=== PATIENT | male | born 1930 | race Caucasian/White ===

== ENCOUNTER → 2017-12-23 | Outpatient (CLI) | payer OTHER, MEDICARE ==
[~2017-12-23] MED LIST: HYDHCL25 PO; ONDA4ODT
[2017-12-23 13:19] LABS: Bilirubin, Urine Neg (Neg); Blood, Urine 1+ (Neg); Glucose Qualitative, Urine Neg (Neg); Ketones, Urine Neg (Neg); Leukocyte Esterase, Urine Neg (Neg); Nitrite, Urine Neg (Neg); Protein, Urine 1+ (Neg); Specific Gravity, Urine 1.005 (1.003-1.022); Urobilinogen, Urine NORM (Normal)
[2017-12-23 13:27] LABS: Appearance, Urine Clear (Clear); Color, Urine Yellow (P-Yellow)
[2017-12-23 13:30] LABS: Bacteria Few /hpf; Hyaline Casts 0-2 /lpf (0-2); Red Blood Cells, Urine 0-2 /hpf (0-2); Squamous Epithelial Cells Few /hpf (Few); White Blood Cells, Urine 0-2 /hpf (0-5)
== END ==
LOC: LAB SHORT 13:01 → LAB 13:01
PROVIDERS: Internal Medicine Hematology & Oncology
DX: D46.9 Myelodysplastic syndrome, unspecified (principal); R30.0 Dysuria
CPT/HCPCS: 81001; 87086

== ENCOUNTER 2017-12-30 08:52 | Emergency (ER) | END 2017-12-30 13:34 | disposition home or self-care (01) ==

== ENCOUNTER → 2018-02-10 | Outpatient (CLI) | payer MEDICARE ==
[2018-02-10 13:08] LABS: Thyroid Stimulating Hormone 3.13 uIU/mL (0.360-4.800)
== END | disposition home or self-care (01) ==
LOC: LAB 10:07 → LAB SHORT 10:07
PROVIDERS: Internal Medicine Hematology & Oncology
DX: D46.9 Myelodysplastic syndrome, unspecified (principal); R53.83 Other fatigue
CPT/HCPCS: 84439; 84443

== ENCOUNTER 2018-04-06 13:27 | Emergency (ER) | payer MEDICARE ==
[~2018-04-06] VITALS: Ht 177.8 cm; Wt 58.5 kg
[~2018-04-06 13:27] MED LIST changes: +ALPR1 PO; +FAMC500 PO; +FLONASE ALLERG9.9 ML; +FLUO10 PO; +GABA100 PO; -ONDA4ODT; +ONDA4ODT PO; +OXYC5 PO; +TAMS.4ER PO
[2018-04-06] MEDS ORDERED: GABA100 (13:39)
== END 2018-04-06 14:02 | disposition home or self-care (01) ==
LOC: ER 13:27
DX: L50.9 Urticaria, unspecified (principal); Z79.899 Other long term (current) drug therapy
CPT/HCPCS: 96372; 99282; J1100